=== PATIENT | male | born 1995 | race Caucasian/White ===

== ENCOUNTER 2024-07-23 13:46 | Emergency (ER) | payer OTHER, SELFPAY ==
--- NOTE | ~2024-07-23 | XR_ITS ---
XR hand LT min 3V 07/23/2024 14:51 INDICATION: Left hand pain PROCEDURE: 4 views left hand COMPARISON: No prior studies for comparison. FINDINGS: Fracture, dislocation or subluxation is not identified. The soft tissues appear within norm al limits. No foreign bodies are identified. IMPRESSION: 1: NO ACUTE BONE OR JOINT ABNORMALITY IDENTIFIED. Reviewed, dictated and finalized at location B.
--- NOTE | ~2024-07-23 | CT_ITS ---
EXAMINATION: CT brain wo con DATE: 07/23/2024 14:43 INDICATION: Head injury TECHNIQUE: Computed tomography (CT) of the head was performed without intravenous contrast. Sagittal and coronal reconstructions were performed. The mA was adjusted according to patient size. Iterative reconstruction technique was employed. The dose-length product was 605.33 mGy-cm. COMPARISON: None FINDINGS: No fracture. No acute intracranial hemorrhage, acute infarction or abnormal extra axial fluid collect ion. Ventricles are normal and symmetric. No mass/mass effect. The orbits, paranasal sinuses and mast oid air cells are normal. IMPRESSION: 1. Normal brain. No fracture or acute intracranial process. Reviewed, dictated and finalized at location A.
[2024-07-23 13:48] VITALS: BP 154/92; PULSE 107; RESP 18; TEMP 36.5; O2SAT 99
--- NOTE | 2024-07-23 14:05 | ED.GENADULT ---
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 Patient states that he was aware that the branch was going to hit him so he was able to shield his head. Patient did get struck in the head, had no loss of consciousness but did feel that he had some unstable gait immediately afterwards. Patient also has pain to his left middle finger. Patient is unsure of his tetanus status. Related Data Allergies Allergy/AdvReac Type Severity Reaction Status Date / Time No Known Allergies Allergy Verified 07/23/24 13:51 Review of Systems Review of Systems: All systems reviewed & are unremarkable except as noted in HPI and below Exam Narrative: APPEARANCE: Well appearing, no pain, no distress, well-nourished. HEAD: normocephalic, left-sided posterior hematoma with superficial laceration. EYES: PERRLA/EOMI, conjunctivae clear. NOSE: Normal no drainage EARS:TMS clear with good light reflex. THROAT: Pharynx clear, no exudate. NECK: Supple. No adenopathy, no masses. RESPIRATORY: Airway patent, respirations nonlabored. Clear to auscultation bilaterally, no rales, rhonchi, wheezing. CARDIOVASCULAR: Regular rate and rhythm without murmurs rubs or gallops. ABDOMINAL: Soft, nontender, nondistended, normal bowel sounds MUSCULOSKELETAL: Moves all extremities. Strength/ROM intact, No edema, No calf tenderness. NEURO: Alert. Cranial nerves II through XII intact. Grossly intact SKIN: Warm, dry. Normal Color Course Course Emergency Course: Imaging was negative patient was discharged home. Patient's tetanus was updated. Vital Signs Vital signs: Vital Signs Temperature 97.7 F 07/23/24 13:48 Pulse Rate 107 H 07/23/24 13:48 Respiratory Rate 18 07/23/24 13:48 Blood Pressure 154/92 H 07/23/24 13:48 Pulse Oximetry 99 07/23/24 13:48 Oxygen Delivery Room Air 07/23/24 13:48 Temperature 97.9 F 07/23/24 14:17 Pulse Rate 90 07/23/24 14:17 Respiratory Rate 15 07/23/24 14:17 Blood Pressure 131/83 07/23/24 14:17 Pulse Oximetry 98 07/23/24 14:17 Oxygen Delivery Room Air 07/23/24 13:48 Medical Decision Making MDM Narrative Medical decision making narrative: 29-year-old male presenting emergency department for evaluation after being struck by a large tree branch. Patient's x-ray of his hand was negative CT head was negative. Patient's tetanus was updated. Patient was comfortable plan for discharge and close follow-up. Differential Diagnosis Differential Diagnosis: Subdural hematoma, subarachnoid hemorrhage, finger fracture, finger contusion, concussion Vital Signs Vital Signs: Vital Signs Temperature 97.7 F 07/23/24 13:48 Pulse Rate 107 H 07/23/24 13:48 Respiratory Rate 18 07/23/24 13:48 Blood Pressure 154/92 H 07/23/24 13:48 Pulse Oximetry 99 07/23/24 13:48 Oxygen Delivery Room Air 07/23/24 13:48 Temperature 97.9 F 07/23/24 14:17 Pulse Rate 90 07/23/24 14:17 Respiratory Rate 15 07/23/24 14:17 Blood Pressure 131/83 07/23/24 14:17 Pulse Oximetry 98 07/23/24 14:17 Oxygen Delivery Room Air 07/23/24 13:48 Imaging Data Radiologist's impression: Impressions Head CT 07/23/24 14:48 IMPRESSION: 1. Normal brain. No fracture or acute intracranial process. Hand X-Ray 07/23/24 15:01 IMPRESSION: 1: NO ACUTE BONE OR JOINT ABNORMALITY IDENTIFIED. Discharge Plan Discharge Clinical Impression: Head injury, Finger injury Patient Disposition: Home, Self-Care Condition: Stable Instructions: Antibiotic Form, Head Injury (ED) Additional Instructions: Have close follow-up with your primary care physician. Tylenol and ibuprofen for pain control. Fol
[2024-07-23] MEDS: TETANUS,DIPHTHERIA,AC PERTUSSIS ADULT (0.5 ML) BOOSTRIX IM (14:11)
[2024-07-23 14:17] VITALS: BP 131/83; PULSE 90; RESP 15; TEMP 36.6; O2SAT 98
== END 2024-07-23 15:55 | disposition home or self-care (01) ==
PROVIDERS: Emergency Provider Emergency Medicine
DX: S09.90XA Unspecified injury of head, initial encounter (principal); S69.92XA Unspecified injury of left wrist, hand and finger(s), initial encounter; W22.8XXA Striking against or struck by other objects, initial encounter; Z23 Encounter for immunization
CPT/HCPCS: 70450; 73130; 90471; 90715; 99284